=== PATIENT | female | born 1950 | race Caucasian/White ===

== ENCOUNTER → 2018-02-12 09:14 | Outpatient (CLI) | payer MEDICARE, SELFPAY ==
--- NOTE | 2018-02-12 09:18 | BI_ITS ---
MAMMOGRAPHY - BILATERAL SCREENING REASON FOR EXAM: Female, 67 years old. Routine annual screening examination. PERTINENT HISTORY: Non-contributory. Prior left stereotactic breast biopsy and excisional breast biopsy. TECHNIQUE: Digital bilateral breast caleb (3D mammographic acquisition) in the CC and MLO projections. 2-D mediolateral oblique (MLO) and craniocaudad (CC) views of both breasts were obtained. CAD: Full Field Digital Mammography with Computer Added Detection was performed. COMPARISON: Comparison is made with prior study dated February 04, 2017 and December 19, 2015. FINDINGS: Breast Composition: The breasts are heterogeneously dense, which may obscure small masses. There are no dominant masses or suspicious calcifications. Once again, surgical clips are seen in the upper outer portion of the left breast. No other significant abnormalities are identified. There has been no significant change since the prior study. BI/SCREENING MAMM (CAD), BILAT IMPRESSION: Stable bilateral screening mammogram. Yearly follow-up mammogram recommended. (A) ASSESSMENT CATEGORY: BIRADS Category 2: Benign. A letter regarding these results will be sent to the patient by the facility within 30 days. Approximately 10% of breast cancers are not detected by mammography. A normal mammogram should not delay biopsy of a clinically suspicious abnormality. [id number] Electronically Signed: Wade Sellers MD at 10:58 EDT Tel [phone], Service support ,
== END ==
PROVIDERS: Family Provider Family Medicine; PCP Family Medicine; Visit Provider Obstetrics & Gynecology
DX: Z12.31 Encounter for screening mammogram for malignant neoplasm of breast (principal)
CPT/HCPCS: 77063; 77067

== ENCOUNTER → 2019-02-16 | Outpatient (CLI) | payer MEDICARE, SELFPAY ==
--- NOTE | 2019-02-16 12:32 | BI_ITS ---
MAMMOGRAPHY - BILATERAL SCREENING REASON FOR EXAM: Female, 68 years old. Routine annual screening examination. PERTINENT HISTORY: Non-contributory. Remote left stereotactic breast biopsy and left excisional breast biopsy. TECHNIQUE: Digital bilateral breast caleb (3D mammographic acquisition) in the CC and MLO projections. 2-D mediolateral oblique (MLO) and craniocaudad (CC) views of both breasts were obtained. CAD: Full Field Digital Mammography with Computer Added Detection was performed. COMPARISON: Comparison is made with prior study dated February 12, 2018 and February 04, 2017. FINDINGS: Breast Composition: The breasts are heterogeneously dense, which may obscure small masses. The patient is status post lumpectomy in the upper lateral aspect of the left breast. Postsurgical changes are seen with evidence of scarring. No new mass lesion or cluster microcalcification is seen. No other significant abnormalities are identified. There has been no significant change since the prior study. BI/SCREENING MAMM (CAD), BILAT IMPRESSION: Stable bilateral screening mammogram. Yearly follow-up mammogram recommended. (A) ASSESSMENT CATEGORY: BIRADS Category 2: Benign. A letter regarding these results will be sent to the patient by the facility within 30 days. Approximately 10% of breast cancers are not detected by mammography. A normal mammogram should not delay biopsy of a clinically suspicious abnormality. [id number] Electronically Signed: Wade Sellers, at 15:21 EDT , Service support ,
--- NOTE | 2019-02-16 13:14 | BD_ITS ---
STUDY: DUAL ENERGY X-RAY ABSORPTIOMETRY / DXA REASON FOR EXAM: Female, 68 years old. The patient is postmenopausal. Loss of height. TECHNIQUE: Bone Mineral Density (BMD) measurements of lumbar spine and bilateral hips were obtained. COMPARISON: Comparison is made with prior study dated February 04, 2017. FINDINGS: Lumbar Spine (L1-L4): g/cm2 (1.243) / T-score (0.4) / Z-score (2.0) Findings are suggestive of normal bone density with a low fracture risk. Left Femur Total: g/cm2 (0.681) / T-score (-2.6) / Z-score (-1.1) Left Femoral Neck: g/cm2 (0.697) / T-score (-2.5) / Z-score (-0.8) Right Femur Total: g/cm2 (0.686) / T-score (-2.6) / Z-score (-1.1) Right Femoral Neck: g/cm2 (0.684) / T-score (-2.5) / Z-score (-0.9) The T-Scores on the most recent prior examination were: Lumbar Spine (L1-L4): There has been improvement of bone density since the previous examination. Left Femur Total: which represents a worsening of 1.6%. Right Femur Total: which represents a worsening of 3.8%. BD/Dexa Bone Density Study IMPRESSION: The patient is considered osteoporotic as outlined below according to World [employer] Organization (WHO) criteria with a high fracture risk. There has been worsening of bone density since the previous examination. Reference Information: The T-score is the number of standard deviations above or below the standard which is normal for young adults at their peak bone mineral density. The World Health Organization (WHO) interprets the T-scores as follows: Above -1 Normal bone density Between -1 and -2.5 Osteopenia Equal to / or below -2.5 Osteoporosis As a practical clinical guideline, osteopenia may be graded as follows: Mild -1 through -1.5 Moderate -1.6 through -2.0 Severe -2.1 through -2.4 The Z-score is the number of standard deviations above or below age-matched controls. A Z-score of less than -1.5 would be considered abnormal. References: 1. NIH Osteoporosis and Related Bone Diseases http://www.osteo.org 2. International Society for Clinical Densitometry http://www.iscd.org 3. National Osteoporosis Foundation http://www.nof.org Electronically Signed: Wade Sellers, at 13:11 EDT , Service support ,
== END | disposition home or self-care (01) ==
LOC: OPBD 12:30
PROVIDERS: Family Provider Family Medicine; PCP Family Medicine; Referring Provider Obstetrics & Gynecology; Visit Provider Obstetrics & Gynecology
DX: Z12.31 Encounter for screening mammogram for malignant neoplasm of breast (principal); M81.0 Age-related osteoporosis without current pathological fracture
CPT/HCPCS: 77063; 77067; 77080

== ENCOUNTER 2019-05-18 08:20 | Emergency (ER) | payer MEDICARE, SELFPAY ==
[2019-05-18 08:20] VITALS: BP 134/79; PULSE 91; RESP 20; TEMP 36.4; O2SAT 100; BMI 21.9
--- NOTE | 2019-05-18 08:30 | EKG12_ITS ---
Test Reason : CP Blood Pressure : / mmHG Vent. Rate : 097 BPM Atrial Rate : 097 BPM P-R Int : 148 ms QRS Dur : 068 ms QT Int : 362 ms P-R-T Axes : 076 046 061 degrees QTc Int : 459 ms Normal sinus rhythm Normal ECG Confirmed by DAVIDSON FELIPE ([id number]), purchasing expeditor KERRY CHAVEZ ([id number]) on 05/20/2019 1:48:04 PM Referred By: SAMREEN Confirmed By:DAVIDSON FELIPE
--- NOTE | 2019-05-18 08:30 | RAD_ITS ---
STUDY: X-RAY CHEST REASON FOR EXAM: Female, 68 years old. Chest pain. TECHNIQUE: Single AP portable view of the chest. COMPARISON: None. FINDINGS: EKG electrodes are seen. Hyperinflation. The lungs are clear. There is no demonstrated pleural abnormality. Normal size heart. Normal mediastinum and lory. Normal visualized pulmonary arteries. Normal visualized aortic arch and descending thoracic aorta. There are diffuse degenerative changes of the visualized thoracic spine. Normal visualized ribs, clavicles, and shoulders. There is no demonstrated abnormality of the visualized soft tissue structures of the upper abdomen. RAD/Chest 1 View (Portable) IMPRESSION: Hyperinflation. The lungs are clear. Electronically Signed: Wade Sellers, at 9:15 EDT , Service support ,
[2019-05-18 08:44] LABS: Absolute Lymphocyte Count 2.36 X10^3/ul (0.83-4.51); Absolute Neutrophil Count 3.7 X10^3/uL (2.0-7.7); Basophil# 0.02 X10^3/uL; Basophil% 0.3 % (0-1); Eosinophil# 0.28 X10^3/uL; Hematocrit 39.5 % (37-47); Hemoglobin 13.4 g/dl (12.0-15.0); Lymphocyte # 2.36 X10^3/ul (4.0); Mean Corp Hgb Conc 33.9 g/gl (32-36); Mean Corpuscular Hgb 31.2 pg (27.0-32.0); Mean Corpuscular Volume 91.9 fL (81-99); Monocyte% 8.6 % (0-10); Neutrophil # 3.68 X10^3/uL (2.7-7.7); Platelet Count 265 K/mm3 (150-450); RBC Distribution Width CV 13.1 % (11.6-14.6); RBC Distribution Width SD 43.9 fl (35.1-43.9)
[2019-05-18] MEDS: Aspirin 81 MG TAB.CHEW 324 MG PO (08:44)
[2019-05-18 08:48] LABS: POSITIVE COUNT NO; POSITIVE DIFFERENTIAL NO; POSITIVE MORPHOLOGY NO
[2019-05-18] MEDS: 0.9% Normal Saline 1,000 ML 150 ML IV (08:49)
[2019-05-18 09:00] LABS: BUN 15 mg/dL (7-18); Creatinine, Serum 0.83 mg/dL (0.55-1.02); Estimated Creatinine Clearance 47.59 ml/min; Glucose 90 mg/dL (74-106)
[2019-05-18 09:01] LABS: Anion Gap 9 (5-15); Calcium,Total 8.8 mg/dL (8.5-10.1); Chloride 105 mmol/L (98-107); EST Glomerular Filtration Rate 72 mL/min (>60); Est Glom Filt Rate - Afr Amer 87 mL/min (>60); Potassium 3.4 mmol/L (3.5-5.1); Sodium Level 142 mmol/L (136-145)
[2019-05-18 09:22] LABS: D-Dimer Quantitative (DVT/PE) 0.84 FEU/ug/m (0.27-0.49)
--- NOTE | 2019-05-18 09:27 | ED.RN ---
lab called d-dimer of 0.84. dr gillespie
--- NOTE | 2019-05-18 09:28 | CT_ITS ---
STUDY: CTA CHEST REASON FOR EXAM: Female, 68 years old. Shortness of breath. RADIATION DOSAGE (If Supplied By Facility): CTDIvol = ( 4.77 ) mGy, DLP = ( 161.21 ) mGycm TECHNIQUE: The examination was performed with the intravenous administration of 100ML IV Isovue 370. Post-processing of the angiographic images was performed, with multiplanar reformation and 3D reconstruction. Individualized dose optimization techniques were used for this CT. COMPARISON: None. FINDINGS: Normal enhancement of the main pulmonary artery and right and left pulmonary arteries. Normal enhancement of the bilateral peripheral pulmonary arteries. There is no demonstrated pulmonary embolism. Normal thoracic aorta and visualized great vessels. There is no demonstrated aortic dissection. Normal heart and pericardium. Normal mediastinum. Normal hilar regions. Normal visualized trachea and bronchi. The lungs are well expanded. Minimal increased markings in the lingular segment of the left upper lobe suggesting lobar linear scarring and/or atelectasis. Focal linear scarring is also seen in the anterior medial aspect of the right middle lobe. Normal pleura. Normal chest wall structures. There are degenerative changes of thoracic spine. Normal visualized upper abdomen. CT/CTA Chest W/WO Contrast IMPRESSION: No evidence of pulmonary embolism. Minimal increased linear markings in the lingular segment of the left upper lobe as well as in the anterior medial aspect of the right middle lobe suggestive of scarring. Electronically Signed: Wade Sellers, at 10:58 EDT , Service support ,
--- NOTE | 2019-05-18 11:13 | ED.VISSUMM ---
- ER Visit Summary Date of Service: 05/18/19 Chief Complaint: [Chest pain] History of Present Illness: The patient is a 68 F [presents the emergency department with complaint of chest discomfort that started about 6:30 AM when she first woke up she noted that she had some heaviness in her chest. Patient states the pain then subsequently became sharp and worse with deep breath and certain movements. Patient then became somewhat anxious she states. Patient did notice some shortness of breath. She denied any radiation of the pain into the arm or neck or jaw. She denied nausea or vomiting. Did complain of feeling slightly lightheaded. Patient has not had discomfort like this before. Patient has a history of osteopenia. Patient does not have any heart history. No family history of heart disease. Patient does not smoke. She does not have history of hypertension, diabetes, high cholesterol, or other risk factors for heart disease. She denies recent travel or surgery.] Physical Examination: [HEENT-PERRLA, EOMI. Cranial nerves II through XII grossly intact. TMs clear. Mucous membranes moist. No adenopathy. Cardiovascular-regular rate and rhythm without murmur or ectopy Lungs-clear to auscultation, chest wall stable without crepitus or subcu emphysema. Patient does have tenderness palpation over the left anterior chest wall near the sternal chondral junction that reproduces her pain. Abdomen-normoactive bowel sounds, soft, nontender, no rebound or rigidity, no peritoneal signs. Extremities-intact ?4, normal range of motion, normal pulses, atraumatic] Test Results: [EKG obtained on arrival shows sinus rhythm with a ventricular rate of 97 bpm with no acute ST segment changes. CBC with differential is normal. Chemistries were unremarkable. Troponin is less than 0.015. D-dimer was slightly elevated 0.84. CTA of the chest was negative for PE or dissection. Patient was noted to have some scarring.] Emergency Department Course and Treatment: [Patient received aspirin.] Treatment Plan: [I feel patient is low risk for coronary artery disease as her ANGELO risk score was a 1 given for her age. Her chest pain is atypical and reproducible. Her chest pain is also pleuritic.] Disposition: [Discharged home in stable condition. Advised to follow-up with primary care physician in 3 to 5 days. Patient advised to return if worsening pain, increasing shortness of breath, or condition should worsen anyway] Impression: [Chest pain-etiology uncertain-atypical] This note was generated with [employer] dictation software. It may contain incorrect words, spelling, and punctuation that were not noted in review of the chart prior to signing ED Disposition - Plan for ED Patient: Referrals: Ray Olson III, MD [Primary Care Provider] -
--- NOTE | 2019-05-18 11:17 | ED.DEP ---
ED Disposition - Plan for ED Patient: Instructions: CHEST PAIN, Uncertain Cause Referrals: Ray Olson III, MD [Primary Care Provider] - 3-5 Days
[2019-05-18 11:43] VITALS: BP 106/50; PULSE 84; RESP 13; O2SAT 97
[2019-05-18 12:09] VITALS: BP 100/61; PULSE 82; RESP 18; O2SAT 100
--- NOTE | 2019-05-18 12:10 | ED.RN ---
THIS NURSE REVIEWED D/C INSTRUCTIONS WITH PT AND VISITOR. PT VERBALIZED UNDERSTANDING OF INSTRUCTIONS. IV D/C. IV CATHETER INTACT. PT TOLERATED WELL. PT DENIES FURTHER NEEDS OR QUESTIONS AT THIS TIME.
== END 2019-05-18 12:12 | disposition home or self-care (01) ==
LOC: ED 08:34
PROVIDERS: Emergency Provider Emergency Medicine; Family Provider Family Medicine; PCP Family Medicine
DX: R07.89 Other chest pain (principal)
CPT/HCPCS: 71045; 71275; 80048; 84484; 85025; 85379; 93005; 96360; 96361; 99285; J7030; Q9967; A4216

== ENCOUNTER → 2022-08-29 | Outpatient (CLI) | payer MEDICARE, SELFPAY ==
--- NOTE | 2022-08-29 11:34 | STRESSREP ---
Stress Test Report Date: 08/29/2022 Procedure: Exercise tolerance test Indications: Dyspnea on exertion Consent: Per the patient Procedure: The patient exercised on a Gee protocol for 7 minutes and 16 seconds achieving a peak heart rate of 179 bpm (121% predicted maximal heart rate) with a peak blood pressure 150/64 mmHg and a peak MET capacity of approximately 10.1 MET's. The baseline ECG demonstrated normal sinus rhythm. The peak exercise ECG demonstrated no ischemic changes. Frequent PACs noted during exercise and in recovery. Rare isolated PVCs. The functional capacity was considered average. The patient had no complaints of chest discomfort during exercise or recovery. The examination was discontinued secondary to target heart rate being achieved and dyspnea. Impression: 1. Technically adequate (percent predicted maximal heart rate greater than 85%) exercise tolerance test 2. Peak exercise ECG with no ischemic changes. 3. Frequent PACs with exercise and in recovery. Isolated rare PVCs. This note was generated with [employer] Inboxation software. It may contain incorrect words, spelling, and punctuation that were not noted in checking the note before signing.
== END | disposition home or self-care (01) ==
LOC: CVS 10:41
PROVIDERS: PCP Family Medicine; Referring Provider Family Medicine; Visit Provider Family Medicine
DX: R06.02 Shortness of breath (principal)
CPT/HCPCS: 93017

== ENCOUNTER → 2022-10-16 | Outpatient (CLI) | payer MEDICARE, SELFPAY ==
[2022-10-16 17:13] LABS: BNP,B-Type NATRIURETIC PEPTIDE 13.5 pg/mL (0-100)
[2022-10-16 17:24] LABS: Thyroid Stim Hormone (TSH) 2.95 uIU/mL (0.358-3.74)
== END | disposition home or self-care (01) ==
LOC: LAB 15:11
PROVIDERS: PCP Family Medicine; Referring Provider Internal Medicine Cardiovascular Disease; Visit Provider Internal Medicine Cardiovascular Disease
DX: R06.02 Shortness of breath (principal); R00.2 Palpitations
CPT/HCPCS: 36415; 83880; 84443

== ENCOUNTER → 2022-11-18 | Outpatient (CLI) | payer MEDICARE, SELFPAY ==
--- NOTE | 2022-11-18 13:10 | ECHOD_ITS ---
Reason For Study: DYSPNEA Procedure This was a 2D Doppler, Color Flow transthoracic echocardiogram. Exam performed in department. Left Ventricle Normal LV size. Left ventricular systolic function is normal. The estimated ejection fraction is 65 %. Normal diastology for age. No regional wall motion abnormalities noted. Right Ventricle Normal RV size. Normal systolic function. Atria Normal left atrium. Normal right atrium. Mitral Valve Normal mitral valve. Mild (1+) eccentric mitral valve insufficiency. Tricuspid Valve Normal tricuspid valve. Mild tricuspid valve insufficiency. Pulmonary artery systolic pressure is 25 mmHg. Aortic Valve Normal aortic valve. Trisinus/trileaflet aortic valve. Pulmonic Valve Normal pulmonic valve. Great Vessels Normal aortic root. The pulmonary artery is normal size. Normal inferior vena cava. Pericardium/Pleural No pericardial effusion. MMode/2D Measurements & Calculations LVIDd: 4.5 cm IVSd: 0.47 cm Ao root diam: 2.5 cm LVIDs: 2.6 cm LVPWd: 0.61 cm RVDd: 2.2 cm FS: 42.7 % LAV(MOD-sp4): 23.3 ml LVAd ap4: 21.5 cm2 SV(MOD-sp4): 28.5 ml LVLd ap4: 7.5 cm EDV(MOD-sp4): 51.9 ml EDV(sp4-el): 52.3 ml LVAs ap4: 12.4 cm2 LVLs ap4: 5.8 cm ESV(MOD-sp4): 23.4 ml ESV(sp4-el): 22.5 ml EF(MOD-sp4): 54.8 % EF(sp4-el): 57.1 % SV(sp4-el): 29.9 ml LA A4 area: 12.5 cm2 LA dimension(2D): 3.2 cm RA A4 area: 13.6 cm2 Time Measurements MV dec time: 0.22 sec Doppler Measurements & Calculations MV E max ramone: 64.3 cm/sec Lat Peak E' Ramone: 12.3 cm/sec Med Peak E' Ramone: 10.1 cm/sec MV A max ramone: 54.5 cm/sec E/E' lat: 5.2 E/E' med: 6.4 MV E/A: 1.2 MV V2 max: 69.3 cm/sec Ao V2 max: 144.0 cm/sec MV max P.9 mmHg MV dec slope: 334.6 cm/sec2 Ao max P.3 mmHg MV V2 mean: 42.4 cm/sec Ao V2 mean: 100.0 cm/sec MV mean P.83 mmHg Ao mean P.6 mmHg MV V2 VTI: 22.7 cm Ao V2 VTI: 35.4 cm AV (velocity ratio): 0.74 LV V1 max: 113.5 cm/sec PA V2 max: 102.3 cm/sec TR max ramone: 234.2 cm/sec LV V1 max P.2 mmHg PA V2 mean: 71.7 cm/sec TR max P.9 mmHg LV V1 mean P.6 mmHg LV V1 mean: 75.2 cm/sec LV V1 VTI: 26.3 cm ECHO/Echo Complete Interpretation Summary Normal LV size. Left ventricular systolic function is normal. The estimated ejection fraction is 65 %. Pulmonary artery systolic pressure is 25 mmHg. Normal diastology for age. Mild (1+) eccentric mitral valve insufficiency. Ordering Physician: John Martins Referring Physician: JOSE DUMONT Performed By: Izzy Rubio RCS
== END | disposition home or self-care (01) ==
LOC: CVS 12:54
PROVIDERS: PCP Family Medicine; Visit Provider Internal Medicine Cardiovascular Disease
DX: R06.02 Shortness of breath (principal); R00.2 Palpitations
CPT/HCPCS: 93306

== ENCOUNTER 2023-12-22 07:34 | Emergency (ER) | payer MEDICARE, SELFPAY ==
[2023-12-22 07:35] VITALS: O2SAT 100
[2023-12-22 07:36] VITALS: BP 126/79; PULSE 82; RESP 14; TEMP 36.8; O2SAT 100
[2023-12-22 07:47] VITALS: BMI 26.2
--- NOTE | 2023-12-22 07:47 | EX.ED.DYSGE1 ---
HPI History of Present Illness Chief Complaint: Dizziness [facility] Medical History Dyspepsia Hyperlipidemia Osteoporosis Palpitations SOB (shortness of breath) Home Medications calcium glucarate 500 mg capsule 1 tab-cap PO DAILY 10/14/22 [History Last Taken Unknown] cholecalciferol (vitamin D3) 50 mcg (2,000 unit) capsule 50 mcg PO BID 10/14/22 [History Last Taken Unknown] denosumab 60 mg/mL subcutaneous syringe (Prolia) 60 mg subcut [id number] 10/14/22 [History Last Taken Unknown] metoprolol succinate 25 mg tablet,extended release 24 hr (Toprol XL) 25 mg PO DAILY #90 tabs 07/08/23 [Rx Last Taken Unknown] meclizine 25 mg tablet 25 mg PO TID #30 tabs 12/22/23 [Rx Last Taken Unknown] Allergy/AdvReac Type Severity Reaction Status Date / Time No Known Allergies Allergy Verified 12/22/23 07:35 Family History Father Heart disease CHF Mother Cancer lung & liver Surgical History History of 2 sections Hx of appendectomy Hx of colonoscopy (~02/13/18) Hx of esophagogastroduodenoscopy (~01/24/22) Social History Smoking Status: Never smoker alcohol intake: current alcohol intake frequency: a few times a week Alcohol type: wine substance use type: does not use caffeine: Yes Type: coffee Number of servings: 1 EXAM Physical Exam Const Vital Signs: 12/22/23 07:35 12/22/23 07:36 12/22/23 07:36 Temperature 98.2 F Temperature Source Temporal Pulse Rate 82 Respiratory Rate 14 Respiratory Pattern Normal Blood Pressure 126/79 H Blood Pressure Mean 94 Pulse Ox 100 100 Oxygen Delivery Method Room Air Room Air 12/22/23 10:34 12/22/23 11:10 Temperature Temperature Source Pulse Rate 82 71 Respiratory Rate 16 15 Respiratory Pattern Blood Pressure 115/78 122/67 H Blood Pressure Mean 90 85 Pulse Ox 97 98 Oxygen Delivery Method Room Air MDM MDM MDM Narrative Medical decision making narrative: HISTORY OF PRESENT ILLNESS: 73-year-old female presents with concern for Dizziness. She states this began acutely yesterday. Is worse when her eyes are open. Her eyes are closed. She states that she has had the symptoms in the past. She had worse in the past. No head trauma. No focal neurologic deficits reported. No chest pain, no shortness of breath. No bleeding diathesis. She does endorse urinating more than usual. REVIEW OF SYSTEMS: Pertinent positives: Dizziness, increased urination Pertinent negatives: Headache, neck pain, chest pain, shortness of breath, palpitations, leg swelling, bleeding, i melena, hematochezia PHYSICAL EXAM: Nursing triage notes reviewed, Vital signs reviewed Constitutional: please see [facility] HENT: MMM Eyes: Pupils equal round and reactive to light, Extraocular muscles intact Neck: No stridor, no JVD, full neck ROM Lungs: Clear to auscultation, No wheezing or rales. No increased work of breathing, no conversational dyspnea, no accessory muscle use, no nasal flaring. No respiratory distress noted Heart: Regular rate and rhythm, No murmurs, No rubs and No gallops, 2+ distal pulses (radial, femoral, posterior tibial) in all extremities Abdomen: Soft, there is no tenderness, rigidity, rebound or guarding, no obvious peritoneal signs, no palpable pulsatile abdominal masses, no auscultated abdominal bruit : No CVAT Extremities: No edema Neuro: Alert and oriented x3, neuro exam at baseline, cranial nerves II through XII are intact. No pain with extraocular muscle movement. There is negative test of skew. 5 of 5 strength in upper and lower extremities in flexion extension. Intact sensation to light touch in upper and lower extremity dermatomes. No truncal or extremity ataxia. No dysdiadochokinesia. Normal gait. 2+ reflexes in upper and lower extremities. No meningeal signs. Negative Babinski. NIH of 0. Negative hints exam Skin: No rash or lesions noted MEDICAL DECISION MAKING: Chief Complaint: Dizziness External records reviewed: Imaging reviewed: CT scan of the brain from 2017 shows chronic involutional changes, no acute intracranial hemorrhage. Brain MRI from 2017 shows no acute abnormalities Factors affecting care: GERD, hyperlipidemia, palpitation Social determinants of health: none History obtained from others: Patient's Consults: none [facility] Narrative: Patient was initially hemodynamically stable, afebrile, nontoxic-appearing. Nonfocal neuroexam, negative hints exam, NIH of 0. I considered the following differential diagnosis: Peripheral vertigo, dehydration, electrolyte abnormality, anemia, arrhythmia, posterior circulation CVA I obtained a broad lab workup to further elucidate the etiology of the patient's complaint ALL IMAGES (IF OBTAINED) HAVE BEEN PERSONALLY REVIEWED AND INTERPRETED BY MYSELF. EKG with normal sinus rhythm, normal axis, normal intervals, no STEMI, occasional PVCs, no significant changes from prior EKG from May 2019 CBC without leukocytosis, severe anemia, no thrombocytopenia. CMP without evidence of acute kidney injury, significant electrolyte abnormality, anion gap, no evidence hepatobiliary pathology. High-sensitivity troponin is negative, no evidence of myocardial ischemia CT scan of the head shows no evidence of intracranial abnormality I have personally reviewed the patient's chest x-ray. Chest x-ray is unremarkable for pulmonary edema, pneumothorax, pneumonia or focal cardiopulmonary abnormality. The synthesis of the patient's history, physical exam, labs images suggest likely peripheral vertigo. No evidence of posterior circulation CVA on clinical exam. No evidence of posterior fossa mass or cerebellar bleed on imaging. No evidence of significant anemia, dehydration, electrolyte disturbance or UTI. Given patient's report of increased urination, increased leukocyte esterase in urine I did send for culture. I opted not to treat with antibiotics at this time. The patient and/or family, caregivers express understanding. The patient and/or family, caregivers agrees with the plan. Shared decision making: I will have a discussion with the patient and or visitors regarding risk/benefits of further testing or admission. They will be made aware of of the risk/benefits inherent in this decision they will be given the opportunity to voice understanding. Total critical care time today provided was at least 0 minutes. This excludes separately billable procedures. Critical care time (if documented) is secondary to the patient having high probability of clinically significant/life threatening deterioration in the patient's condition which required my urgent intervention. Impression: 1. Dizziness 2. Peripheral vertigo Dispo: Discharge home This note was generated with [employer] dictation software. It may contain incorrect words, spelling, and punctuation that were not noted in review of the chart prior to signing. Lab Data Labs: Laboratory Results - last 24 hr 12/22/23 12/22/23 08:35 09:35 WBC 5.0 RBC 4.18 L Hgb 12.9 Hct 38.6 MCV 92.3 MCH 30.9 MCHC 33.4 RDW Std Deviation 42.5 RDW Coeff of Kerri 12.6 Plt Count 317 MPV 9.7 Immature Gran % (Auto) 0.400 Neut % (Auto) 58.2 Lymph % (Auto) 30.0 [place] % (Auto) 5.2 Eos % (Auto) 5.4 H Baso % (Auto) 0.8 Absolute Neuts (auto) 2.9 Absolute Lymphs (auto) 1.49 Nucleated RBC % 0 Sodium 142 Potassium 3.7 Chloride 107 Carbon Dioxide 30.0 Anion Gap 5 BUN 13 Creatinine 0.76 Estim Creat Clear Calc 49.55 Est GFR (MDRD) Af Amer 96 Est GFR (MDRD) Non-Af 79 BUN/Creatinine Ratio 17.2 Glucose 107 H Calcium 8.8 Total Bilirubin 0.40 AST 11 L ALT 17 Alkaline Phosphatase 46 Troponin I High Sens 3 Total Protein 7.2 Albumin 3.6 Globulin 3.6 Albumin/Globulin Ratio 1.0 Urine Color Yellow Urine Clarity Clear Urine pH 8.0 Ur Specific [place] 1.010 Urine Protein Negative Urine Glucose (UA) Normal Urine Ketones Negative Urine Occult Blood Negative Urine Nitrite Negative Urine Bilirubin Negative Urine Urobilinogen Normal Ur Leukocyte Esterase 100 H Urine RBC 0 SEEN Urine WBC 10-25 SEEN Ur Squamous Epith Cells 0-5 SEEN Urine Bacteria 0 SEEN Urine Mucus 0 SEEN Radiography Diagnostic Testing: Clinical Impression(s) from Imaging Studies Brain CT 12/22/23 09:10 IMPRESSION: Age consistent senescent changes, no acute findings Electronically Signed: Brian Andrews MD at 9:37 EST Reading Location ID and State: [facility] / [place] , Service support , Chest X-Ray 12/22/23 09:15 IMPRESSION: No acute pulmonary process, no interval change Electronically Signed: Brian Andrews MD at 9:55 EST , Discharge Plan Triage Chief Complaint: Dizziness ED Provider: Juan Ramon Johnson Dx/Rx/DC Orders Clinical Impression: Peripheral vertigo Instructions: ED BPV Vertigo Prescriptions: New meclizine 25 mg tablet 25 mg PO TID Qty: 30 0RF No Action cholecalciferol (vitamin D3) 50 mcg (2,000 unit) capsule 50 mcg PO BID calcium glucarate 500 mg capsule 1 tab-cap PO DAILY Prolia 60 mg/mL syringe 60 mg subcut [id number] metoprolol succinate [Toprol XL] 25 mg tablet extended release 24 hr 25 mg PO DAILY Qty: 90 3RF Primary Care Provider: Po Hunter Referrals: Po Hunter MD [Primary Care Provider] - Activity Restrictions/Additional Instructions: Thank you for trusting us with your care today! Please take Tylenol (2 pills, 650 mg), ibuprofen (2 pills, 400 mg) every 6 hours as needed for pain and fever control. Please return to the emergency department if your symptoms change or worsen. Please follow with your primary care physician for further outpatient evaluation and management. Disposition Disposition: Home, Self Care Discharge Date/Time: 12/22/23 11:12
--- NOTE | 2023-12-22 08:10 | EKG12_ITS ---
Test Reason : DIZZINESS Blood Pressure : / mmHG Vent. Rate : 074 BPM Atrial Rate : 074 BPM P-R Int : 164 ms QRS Dur : 072 ms QT Int : 408 ms P-R-T Axes : 073 029 024 degrees QTc Int : 452 ms Sinus rhythm with Premature atrial complexes with Aberrant conduction Otherwise normal ECG Confirmed by Chito Smallwood ([id number]), website/blog editor MAXIMILIANO GARCÍA ([id number]) on 12/23/2023 9:16:19 AM Referred By: Confirmed By:Chito Smallwood
[2023-12-22] MEDS: Meclizine HCl 25 MG Tablet PO (08:29)
[2023-12-22] MEDS: Lorazepam 2 MG/ML WCH Syringe 0.5 MG IV (08:31)
[2023-12-22] MEDS: 0.9% Normal Saline (500mL Bag) 500 ML 1000 ML IV (08:33)
[2023-12-22 08:48] LABS: Absolute Lymphocyte Count 1.49 X10^3/uL (0.83-4.51); Absolute Neutrophil Count 2.9 X10^3/uL (2.0-7.7); Basophil# 0.04 X10^3/uL; Basophil% 0.8 % (0-1); Eosinophil# 0.27 X10^3/uL; Eosinophils% 5.4 % (0-5); Hematocrit 38.6 % (37-47); Hemoglobin 12.9 g/dL (12.0-15.0); Lymphocyte # 1.49 X10^3/ul (0.83-4.51); Mean Corp Hgb Conc 33.4 g/dL (32-36); Mean Corpuscular Hgb 30.9 pg (27.0-32.0); Mean Corpuscular Volume 92.3 fL (81-99); Mean Platelet Vol. 9.7 fl (6.2-12.0); Monocyte# 0.26 X10^3/uL; Monocyte% 5.2 % (0-10); NRBC Flagged by Analyzer 0 % (0-5); Neutrophil # 2.89 X10^3/uL (2.7-7.7); Neutrophil % 58.2 % (47-70); Platelet Count 317 K/mm3 (150-450); RBC Distribution Width CV 12.6 % (11.6-14.6); RBC Distribution Width SD 42.5 fl (35.1-43.9); Red Blood Count 4.18 M/mm3 (4.2-5.4)
--- NOTE | 2023-12-22 09:10 | CT_ITS ---
STUDY: CT BRAIN WITHOUT CONTRAST REASON FOR EXAM: Female, 73 years old. Dizziness RADIATION DOSAGE (If Supplied By Facility): CTDIvol = ( 44.99 ) mGy, DLP = ( 745.49 ) mGycm TECHNIQUE: Transaxial CT imaging of the brain was performed without administration of intravenous contrast material. Individualized dose optimization techniques were used for this CT. COMPARISON: No recent studies, MR brain from 2017 FINDINGS: Normal soft tissue structures. Normal calvarium. Normal size ventricles and extra-axial spaces for the patient''s age. Normal white matter tracts of the cerebral hemispheres. Normal basal ganglia and thalami. Normal brainstem. Normal cerebellum. There is no intracranial hemorrhage. There are no findings of an acute ischemic infarction. Normal visualized paranasal sinuses. CT/Brain/Head without Contrast IMPRESSION: Age consistent senescent changes, no acute findings Electronically Signed: Brian Andrews MD at 9:37 EST ,
--- NOTE | 2023-12-22 09:15 | RAD_ITS ---
STUDY: X-RAY CHEST REASON FOR EXAM: Female, 73 years old. Dizziness TECHNIQUE: Single AP portable view of the chest. COMPARISON: 05/18/2019 FINDINGS: EKG leads overlie the chest The lungs are clear and expanded. There is no demonstrated pleural abnormality. Normal size heart. Normal mediastinum and lroy. Normal visualized pulmonary arteries. Normal visualized aortic arch and descending thoracic aorta. There are diffuse degenerative changes of the visualized thoracic spine. Normal visualized ribs, clavicles, and shoulders. There is no demonstrated abnormality of the visualized soft tissue structures of the upper abdomen. RAD/Chest 1 View (Portable) IMPRESSION: No acute pulmonary process, no interval change Electronically Signed: Brian Andrews MD at 9:55 EST ,
[2023-12-22 09:29] LABS: AST(SGOT) 11 U/L (15-37); Alanine Aminotransfer ALT/SGPT 17 U/L (13-56); Albumin, Serum 3.6 g/dL (3.2-5.0); Alkaline Phosphatase 46 U/L (45-117); Anion Gap 5 (5-15); BUN 13 mg/dL (7-18); BUN/Creat Ratio 17.2 RATIO (10-20); Calcium,Total 8.8 mg/dL (8.5-10.1); Chloride 107 mmol/L (98-107); Creatinine, Serum 0.76 mg/dL (0.55-1.02); EST Glomerular Filtration Rate 79 mL/min (>60); Est Glom Filt Rate - Afr Amer 96 mL/min (>60); Estimated Creatinine Clearance 49.55 ml/min; Globulin 3.6 g/dL (2.2-4.2); Glucose 107 mg/dL (74-106); Potassium 3.7 mmol/L (3.5-5.1); Protein, Total 7.2 g/dL (6.4-8.2); Sodium Level 142 mmol/L (136-145); Troponin-I HS 3 pg/mL (3.0-54.0)
[2023-12-22 09:49] LABS: Bacteria 0 SEEN /hpf (None Seen); Mucous, Urine 0 SEEN /hpf (<or=2+); Red Blood Cells-Urine 0 SEEN /hpf (0-5)
[2023-12-22 10:03] LABS: Color, Urine Yellow (Yellow); Glucose, Dipstick Normal (Normal); Ketone-Dipstick Negative (Negative); Leukocyte Esterase-Dipstick 100 /ul (Negative); Nitrite-Dipstick Negative (Negative); Occult Blood-Urine Negative /ul (Negative); Protein-Dipstick Negative (Negative); Urine Bilirubin Dipstick Negative (Negative); Urine Clarity Clear (Clear); Urine Urobilinogen Normal (Normal)
[2023-12-22 10:34] VITALS: BP 115/78; PULSE 82; RESP 16; O2SAT 97
[2023-12-22 10:50] LABS: Squamous Epithelial Cells - UA 0-5 SEEN /hpf (5-10); White Blood Cells 10-25 SEEN /hpf (0-5)
[2023-12-22 11:10] VITALS: BP 122/67; PULSE 71; RESP 15; O2SAT 98
== END 2023-12-22 11:12 | disposition home or self-care (01) ==
PROVIDERS: Emergency Provider Emergency Medicine; PCP Family Medicine; Visit Provider Emergency Medicine
DX: H81.399 Other peripheral vertigo, unspecified ear (principal); R35.0 Frequency of micturition
CPT/HCPCS: 70450; 71045; 80053; 81001; 84484; 85025; 87086; 93005; 99284; J7040; A4216